=== PATIENT | male | born 1960 | race Caucasian/White ===

== ENCOUNTER 2022-11-19 05:32 | Day surgery (SDC) | payer OTHER ==
[2022-11-14 16:55] VITALS: BMI 25.2
[2022-11-19] MEDS ORDERED: MIDAZOLAM HCL 2 MG/2 ML SINGLE DOSE VIAL ONE (09:36)
[2022-11-19] MEDS ORDERED: KETAMINE HCL 500 MG/10 ML VIAL ONE (09:36)
[2022-11-19] MEDS ORDERED: KETOROLAC TROMETHAMINE 30 MG/1 ML VIAL ONE (09:38)
[2022-11-19] MEDS ORDERED: ONDANSETRON 4 MG/2 ML VIAL ONE ×2 (09:38→11:17)
[2022-11-19 10:27] VITALS: RESP 20
[2022-11-19] MEDS ORDERED: ONDANSETRON 4 MG/2 ML VIAL IVPB ONE (11:20)
[2022-11-19 12:18] VITALS: BP 124/73; PULSE 50; TEMP 97.3
== END 2022-11-19 13:03 | disposition home or self-care (01) ==
LOC: JASU-SURG 05:32
PROVIDERS: ATTEND Urology
PROC: 0TF4XZZ Fragmentation in Left Kidney Pelvis, External Approach (ICD-10-PCS; principal; 2022-11-19 11:00)
DX: N20.0 Calculus of kidney (principal)